=== PATIENT | male | born 1995 ===

== ENCOUNTER 2017-11-06 20:59 | Emergency (ER) | payer OTHER ==
[~2017-11-06] VITALS: Ht 175.3 cm; Wt 81.5 kg
[2017-11-06 21:17] VITALS: BP 159/89; PULSE 65; RESP 18; TEMP 98.6; O2SAT 100
[2017-11-06 22:05] VITALS: BP 163/107; PULSE 61; RESP 17; O2SAT 100
--- NOTE | 2017-11-06 22:08 | PD ---
HPI Chief Complaint: Injury Time Seen by Provider: 22:08 Travel History International Travel<30 days: No Contact w/Intl Traveler<30days: No Traveled to known affect area: No History of Present Illness HPI 22-year-old male came to the emergency room with history of right shoulder injury while he was playing tackle. This happened at 8:30 PM. Since then he is having significant pain in his right shoulder area especially when he tries to move it. He has had it in a sling. Vital signs are stable. He has never had this kind of injury or pain before. There is some tingling of his fingers that started recently. He thinks it is because he has been in the sling for a while. No other injuries from the accident. [facility] Past Medical History Narrative Medical List of his past medical, surgical, social and family history is reviewed from the nursing note Medical History: Denies Significant Hx Influenza Vaccination: No Past Surgical History Other Surgery: Yes (umbelical hernia repair) Social History Alcohol Use: Yes (once a week) Tobacco Use: Yes Substance Use: No Allergies-Medications (Allergen,Severity, Reaction): Coded Allergies: No Known Drug Allergies (Verified Allergy, Unknown, 11/06/17) Comments No known drug allergies Reported Meds & Prescriptions Reported Meds & Active Scripts Active Omeprazole 20 Mg Tab 20 Mg PO DAILY Ketorolac (Ketorolac Tromethamine) 10 Mg Tab 10 Mg PO Q6HR PRN Narrative Medication List of his home medications reviewed from the nursing note Review of Systems Except as stated in HPI: all other systems reviewed are Neg Musculoskeletal: Positive: Pain Physical Exam Narrative GENERAL: Awake, alert, mild distress SKIN: Focused skin assessment warm/dry. HEAD: Atraumatic. Normocephalic. EYES: Pupils equal and round. No scleral icterus. No injection or drainage. ENT: No nasal bleeding or discharge. Mucous membranes pink and moist. NECK: Trachea midline. No JVD. CARDIOVASCULAR: Regular rate and rhythm. No murmur appreciated. RESPIRATORY: No accessory muscle use. Clear to auscultation. Breath sounds equal bilaterally. GASTROINTESTINAL: Abdomen soft, non-tender, nondistended. Hepatic and splenic margins not palpable. MUSCULOSKELETAL: No obvious deformities. No clubbing. No cyanosis. No edema. Right shoulder pain on palpation posteriorly as well as lateral NEUROLOGICAL: Awake and alert. No obvious cranial nerve deficits. Motor grossly within normal limits. Normal speech. PSYCHIATRIC: Appropriate mood and affect; insight and judgment normal. Data Data Last Documented VS Vital Signs Date Time Temp Pulse Resp B/P (MAP) Pulse Ox O2 Delivery O2 Flow Rate FiO2 11/06/17 23:19 11/06/17 22:05 61 17 100 Room Air 11/06/17 21:17 98.6 Orders Orders Shoulder, Complete (>2vws) (11/06/17 ) Acetamin-Hydrocod 325-5 Mg ([place] 5-325 (11/06/17 22:30) Sling Cradle Arm (11/06/17 ) Ed Discharge Order (11/06/17 22:34) Sling Cradle Arm (11/06/17 ) MDM Medical Decision Making Medical Screen Exam Complete: Yes Emergency Medical Condition: Yes Medical Record Reviewed: Yes Differential Diagnosis Shoulder fracture, shoulder dislocation, shoulder strain Narrative Course 10:22 PM she was medicated for pain. Waiting for x-ray to be done and resulted. Next 10:35 PM x-ray does not show any dislocation or fracture. Patient will get an arm sling and will be discharged home. Procedures EKG Prior to Arrival: No Diagnosis Primary Impression: Right shoulder strain Qualified Codes: S46.911A - Strain of unspecified muscle, fascia and tendon at shoulder and upper arm level, right arm, initial encounter Additional Impression: Acromioclavicular separation Qualified Codes: S43.101A - Unspecified dislocation of right acromioclavicular joint, initial encounter Referrals: Malcolm Chávez MD 3 days [facility] 3 days Additional Instructions: Follow-up with the clinic whose name and number been given to you on this discharge instruction. If you have a primary care physician he can follow up with him in couple days. Keep the shoulder sling for next couple days after which she should do slight movement of the shoulder and prevent frozen shoulder. Take the medication as per the prescription direction. Apply cold compresses alternating with warm compress. Med/Other Pt SpecificInfo: Prescription(s) given Scripts Omeprazole (Omeprazole) 20 Mg Tab 20 MG PO DAILY, #15 TAB 0 Refills Prov: Isabella Michael MD 11/06/17 Ketorolac (Ketorolac) 10 Mg Tab 10 MG PO Q6HR Y for PAIN, #12 TAB 0 Refills Prov: Isabella Michael MD 11/06/17 Disposition: 01 DISCHARGE HOME Condition: Stable Isabella Michael MD Nov 06, 2017 22:08
[2017-11-06] MEDS ORDERED: ACETAMINOPHEN/HYDROcodone 325 MG/5 MG TAB PO ONE (22:30)
[2017-11-06] MEDS ORDERED: OMEP20TA93 PO (22:37)
[2017-11-06] MEDS ORDERED: KETO10 PO (22:37)
--- NOTE | 2017-11-06 23:01 | RADRPT ---
EXAM DATE/TIME: 11/06/2017 22:26 [place] COMPARISON: No previous studies available for comparison. INDICATIONS : Patient was tackled during football and complains of right shoulder pain near AC joint. MEDICAL HISTORY : None. SURGICAL HISTORY : None. ENCOUNTER: Initial ACUITY: 1 day PAIN SCORE: 8/10 LOCATION: Right Shoulder FINDINGS: There is one shaft width superior displacement of the clavicle with respect to the acromion. I don't see a fracture. Glenohumeral joint is normal. CONCLUSION: Acromioclavicular separation. Ej Coleman MD on November 06, 2017 at 22:59 Board Certified Radiologist. This report was verified electronically.
== END 2017-11-06 23:19 | disposition home or self-care (01) ==
LOC: NEPD 20:59
DX: S46.911A Strain of unspecified muscle, fascia and tendon at shoulder and upper arm level, right arm, initial encounter (principal); S43.101A Unspecified dislocation of right acromioclavicular joint, initial encounter; W50.0XXA Accidental hit or strike by another person, initial encounter; Y93.61 Activity, american tackle football
CPT/HCPCS: 73030; 99283